=== PATIENT | male | born 1995 | race Caucasian/White ===

== ENCOUNTER → 2017-11-29 | Outpatient (REF) | payer OTHER | LOC: M LAB REF 15:05 | DX: H60.312 Diffuse otitis externa, left ear (principal) ==

== ENCOUNTER 2017-12-17 10:06 | Emergency (ER) | payer OTHER ==
[2017-12-17] MEDS: ACETAMINOPHEN TAB 650MG DOSE (2X325MG) PO (10:48)
== END 2017-12-17 11:27 | disposition home or self-care (01) ==
LOC: M ED 10:06
DX: S61.212A Laceration without foreign body of right middle finger without damage to nail, initial encounter (principal); W25.XXXA Contact with sharp glass, initial encounter; Y92.89 Other specified places as the place of occurrence of the external cause
CPT/HCPCS: 99283